=== PATIENT | female | born 2000 | race Caucasian/White ===

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

== ENCOUNTER 2018-06-29 10:36 | Emergency (ER) | payer BC ==
[2018-06-29] MEDS ORDERED: SODIUM CHLORIDE 0.9% 1,000 ML IV ONE ×2 (11:03)
--- NOTE | 2018-06-29 11:05 | ED ---
Female Urogenital HPI - General Chief complaint: Vaginal Bleeding Stated complaint: Vaginal Bleeding, Time Seen by Provider: 06/29/18 10:49 Source: patient, RN notes reviewed, old records reviewed Mode of arrival: ambulatory Limitations: no limitations - History of Present Illness Initial comments: Patient states [age]-year-old female, presents emergency murmurs chiefly menstrual bleeding. She is 9 weeks . Patient states that she has had no fevers or chills, she does report some lower abdominal pain and cramping. She does some cramping yesterday evening but went to bed. She woke up to go to the bathroom this morning she noticed bright red blood in the toilet when she wiped. She states the bleeding has subsided at this time. No history of hemorrhoids. Patient states that she has had no other symptoms at this time. Her PERSONAL INJURY PARALEGAL is Dr. Rowe. Her appointment is in 2 weeks. - Related Data Home Medications Medication Instructions Recorded Confirmed No Known Home Medications 06/29/18 06/29/18 Allergies Allergy/AdvReac Type Severity Reaction Status Date / Time sulfamethoxazole AdvReac Vomiting Verified 06/29/18 11:04 [From Bactrim] trimethoprim [From Bactrim] AdvReac Vomiting Verified 06/29/18 11:04 Review of Systems ROS Statement: Those systems with pertinent positive or pertinent negative responses have been documented in the HPI. ROS Other: All systems not noted in ROS Statement are negative. Past Medical History Additional Past Medical History / Comment(s): IBS History of Any Multi-Drug Resistant Organisms: None Reported Past Surgical History: No Surgical Hx Reported Past Psychological History: No Psychological Hx Reported Smoking Status: Former smoker Past Alcohol Use History: None Reported Past Drug Use History: None Reported General Exam - General Exam Comments Initial Comments: Patient is a 17-year-old female. Alert and oriented. No significant distress. Limitations: no limitations General appearance: alert, in no apparent distress Head exam: Present: atraumatic, normocephalic, normal inspection Eye exam: Present: normal appearance, PERRL, EOMI. Absent: scleral icterus, conjunctival injection, periorbital swelling ENT exam: Present: normal exam, mucous membranes moist Neck exam: Present: normal inspection. Absent: tenderness, meningismus, lymphadenopathy Respiratory exam: Present: normal lung sounds bilaterally. Absent: respiratory distress, wheezes, rales, rhonchi, stridor Cardiovascular Exam: Present: regular rate, normal rhythm, normal heart sounds. Absent: systolic murmur, diastolic murmur, rubs, gallop, clicks GI/Abdominal exam: Present: soft, tenderness (Suprapubic and left lower quadrant tenderness.), normal bowel sounds. Absent: distended, guarding, rebound, rigid External exam: Present: normal external exam Speculum exam: Present: vaginal bleeding (Patient has faint vaginal bleeding this time. No significant clots noted.). Absent: normal speculum exam, cervical discharge, foreign body, tissue, laceration By manual exam: Present: normal by manual exam Extremities exam: Present: normal inspection, full ROM, normal capillary refill. Absent: tenderness, pedal edema, joint swelling, calf tenderness Back exam: Present: normal inspection Neurological exam: Present: alert, oriented X3, CN II-XII intact Psychiatric exam: Present: normal affect, normal mood Skin exam: Present: warm, dry, intact, normal color. Absent: rash Course Vital Signs 06/29/18 10:49 Temperature 98.3 F Pulse Rate 77 Respiratory 18 Rate Blood Pressure 107/74 O2 Sat by Pulse 100 Oximetry Medical Decision Making - Medical Decision Making 17-year-old female 9 weeks presents emergency department today with vaginal bleeding today. She reports that she wiped this morning when she urinated. On pelvic exam there is noted blood. No significant clots. No tenderness at this time. Ultrasound was completed and shows a viable IUP. Heart rate was 1 74 bpm. She has no significant tenderness on exam. She is Rh - blood type, given RhoGAM. I discussed case with Dr. Miller who is on-call for her PERSONAL INJURY PARALEGAL, Dr. Rowe. Patient will be seen by Dr. Rowe on Sunday. Discussed at that time medically remain order further blood work or ultrasound. Patient received treatment plan will comply. REturn parameters were discussed. - Lab Data Lab Results 06/29/18 06/29/18 06/29/18 Range/Units 11:12 11:12 11:12 Urine Color Yellow Urine Appearance Turbid H (Clear) Urine pH 7.5 (5.0-8.0) Ur Specific [place] 1.015 (1.001-1.035) Urine Protein Trace H (Negative) Urine Glucose (UA) Negative (Negative) Urine Ketones Negative (Negative) Urine Blood Small H (Negative) Urine Nitrite Negative (Negative) Urine Bilirubin Negative (Negative) Urine Urobilinogen <2.0 (<2.0) mg/dL Ur Leukocyte Esterase Negative (Negative) Urine WBC 14 H (0-5) /hpf Ur Squamous Epith Cells 17 H (0-4) /hpf Urine Bacteria Many H (None) /hpf Urine Mucus Rare H (None) /hpf Urine HCG, Qual Detected (Not Detectd) Blood Type A Negative Blood Type Recheck [facility] ONLY - Radiology Data Radiology results: report reviewed Intrauterine gestation age of 9 weeks and 5 days. Heart rate was 1 74 bpm. Disposition Clinical Impression: Threatened miscarriage Disposition: HOME SELF-CARE Condition: Good Instructions: Threatened Miscarriage (ED) Additional Instructions: Patient has follow-up with primary care physician. Return to emergency department if any alarming signs or symptoms occur. Follow-up with Dr. Rowe on Sunday. Is patient prescribed a controlled substance at d/c from ED?: No Referrals: Navin Mccarthy MD [Primary Care Provider] - 1-2 days Deidra Rowe DO [Doctor of Osteopathic Medicine] - 1-2 days Time of Disposition: 12:24
[2018-06-29 11:24] LABS: Appearance,Urine Turbid (Clear); Bacteria,Urine Many /hpf; Bilirubin,Urine Negative (Negative); Blood,Urine Small (Negative); Color,Urine Yellow; Glucose,Urine (UA) Negative (Negative); Ketones,Urine Negative (Negative); Leukocyte Esterase,Urine Negative (Negative); Mucus,Urine Rare /hpf; Nitrite,Urine Negative (Negative); PH, Urine 7.5 (5.0-8.0); Protein,Urine Trace (Negative); Specific Gravity,Urine 1.015 (1.001-1.035); Squamous Epithelial Cell,Urine 17 /hpf (0-4); Urobilinogen,Urine <2.0 mg/dL (<2.0); WBC,Urine 14 /hpf (0-5)
--- NOTE | 2018-06-29 11:43 | US ---
EXAMINATION TYPE: Transabdominal DATE OF EXAM: 01/15/18 COMPARISON: NONE CLINICAL HISTORY: pain. Cramping and bleeding x 1 day, 1 EXAM PERFORMED: Transabdominal (TA) EXAM MEASUREMENTS: GESTATIONAL AGE / DATING Physician Established: Not established yet Dates by LMP: Unknown Dates by First Scan: This is 1st scan Dates by Current Scan for: ( 9 weeks/0 days) EDC: 02/01/2019 MATERNAL ANATOMY Uterus: 9.7 x 6.3 x 8.7cm, anteverted Right Ovary: 3.1 x 2.2 x 1.8cm Left Ovary: 2.9 x 2.5 x 1.9cm Post CDS / Adnexa: small amount of fluid seen in posterior cul de sac Presence of free fluid: yes Presence of corpus luteal cyst: not seen at this time Presence of subchorionic bleed: no GESTATION / SURVEY CRL: 2.2cm (9 weeks/0 days) Yolk Sac (normal less than 6mm): 3.8mm Heart Rate: 174 bpm Rhythm: Normal IUP: Viable IUP Date of LMP: Unknown Beta HcG (if available): Not available at time of exam Viable single IUP measuring 9 weeks 0 days with a heart rate of 174bpm and an estimated delivery date of 02/01/2019. IMPRESSION: BILATERAL UTERINE GESTATION WITH A GESTATIONAL AGE OF 9 WEEKS +/- 5 DAYS. ESTIMATED DATE OF CONFINEME NT BASED ON THIS EXAMINATION IS 02/01/2019.
[2018-06-29] MEDS ORDERED: Rhogam IMMUNE GLOBULIN 1,500 UNIT/1 ML IM ONE (12:09)
[2018-06-29 12:59] VITALS: BP 105/72; PULSE 70; RESP 16; TEMP 98.1
[2018-06-30 12:09] LABS: N. gonorrhoeae,PCR Negative (Neg,Equiv); Neisseria Source Vagina
[2018-06-30 12:10] LABS: C. trachomatis,PCR Negative (Neg,Equiv); Chlamydia trachomatis Source Vagina
== END 2018-06-29 12:59 | disposition home or self-care (01) ==
LOC: EC 10:36
DX: O20.0 Threatened abortion (principal); O99.89 Other specified diseases and conditions complicating pregnancy, childbirth and the puerperium; R82.71 Bacteriuria; O99.611 Diseases of the digestive system complicating pregnancy, first trimester; K58.9 Irritable bowel syndrome, unspecified; Z87.891 Personal history of nicotine dependence; Z88.2 Allergy status to sulfonamides; Z3A.09 9 weeks gestation of pregnancy; Z53.8 Procedure and treatment not carried out for other reasons
CPT/HCPCS: 36415; 86900; 86901; 86850; 81001; 81025; 84702; 87808; 87491; 87591; 87070; 87086; 87205; 76801; 99284; 96372; J2791

== ENCOUNTER 2018-07-17 13:58 | Emergency (ER) | payer BC ==
[2018-07-17] MEDS ORDERED: METOCLOPRAMIDE 5 MG/ML 2 ML VIAL IVP STA (14:18)
[2018-07-17] MEDS ORDERED: SODIUM CHLORIDE 0.9% 1,000 ML IV STA (14:18)
--- NOTE | 2018-07-17 14:20 | ED ---
General Adult HPI - General Chief complaint: Nausea/Vomiting/Diarrhea Stated complaint: vomiting & migraines/11 wks preg Time Seen by Provider: 07/17/18 14:12 Source: patient, RN notes reviewed Mode of arrival: ambulatory Limitations: no limitations - History of Present Illness Initial comments: The 17-year-old male who is G1, P0, 11 weeks , presented to the emergency room today with a chief complaint of increased nausea vomiting over the last 3 days. Patient does admit that she's had some morning sickness through the but over the last 3 days has been worse. She is having a difficult time keeping anything down. States she has had a headache located in the front of her head. She states she feels somewhat dehydrated. She states the headache is related to this. Patient that she called her OB and was advised compared to emergency room for IV fluids. Patient denies any vaginal bleeding or discharge. Denies any abdominal pain. Denies any other complaints or symptoms. Patient denies any recent fever, chills, shortness of breath, chest pain, back pain, numbness or tingling, dysuria or hematuria, constipation or diarrhea, headaches or visual changes, or any other complaints. - Related Data Home Medications Medication Instructions Recorded Confirmed Pnv,Calcium 72/Iron/Folic Acid 1 tab PO DAILY 07/17/18 07/17/18 [ Plus Tablet] Allergies Allergy/AdvReac Type Severity Reaction Status Date / Time sulfamethoxazole AdvReac Vomiting Verified 07/17/18 14:03 [From Bactrim] trimethoprim [From Bactrim] AdvReac Vomiting Verified 07/17/18 14:03 Review of Systems ROS Statement: Those systems with pertinent positive or pertinent negative responses have been documented in the HPI. ROS Other: All systems not noted in ROS Statement are negative. Past Medical History Past Medical History: No Reported History Additional Past Medical History / Comment(s): IBS History of Any Multi-Drug Resistant Organisms: None Reported Past Surgical History: No Surgical Hx Reported Past Psychological History: Anxiety Smoking Status: Current every day smoker Past Alcohol Use History: None Reported Past Drug Use History: None Reported General Exam - General Exam Comments Initial Comments: General: The patient is awake and alert, in no distress, and does not appear acutely ill. Eye: Extra-ocular movements are intact. No nystagmus. There is normal conjunctiva bilaterally. No signs of icterus. Ears, nose, mouth and throat: There are moist mucous membranes and no oral lesions. Neck: The neck is supple, there is no tenderness or JVD. Cardiovascular: There is a regular rate and rhythm. No murmur, rub or gallop is appreciated. Respiratory: Lungs are clear to auscultation, respirations are non-labored, breath sounds are equal. No wheezes, stridor, rales, or rhonchi. Gastrointestinal: Soft, non-distended, non-tender abdomen without masses or organomegaly noted. There is no rebound or guarding present. No CVA tenderness. Musculoskeletal: Normal ROM, no tenderness. Sensation intact. Neurological: A&O x 3. CN II-XII intact, There are no obvious motor or sensory deficits. Coordination appears grossly intact. Speech is normal. Skin: Skin is warm and dry and no rashes or lesions are noted. Psychiatric: Cooperative, appropriate mood & affect, normal judgment. Limitations: no limitations Course Vital Signs 07/17/18 07/17/18 14:00 15:30 Temperature 98.2 F 98.1 F Pulse Rate 86 82 Respiratory 18 20 Rate Blood Pressure 110/67 99/57 O2 Sat by Pulse 100 99 Oximetry Medical Decision Making - Medical Decision Making Reexamined at this time shows no signs of stress she sitting up comfortably. She is given a liter bolus along with Reglan here in emergency rooms feeling much better. Patient denies any headache states is completely gone. Patient states she is ready to be discharged home. Will be discharged and advised follow-up with her OB over the next 2 days. Advised return if symptoms increase worsen or for any other concerns. - Lab Data Result diagrams: 07/17/18 14:35 07/17/18 14:35 Lab Results 07/17/18 07/17/18 07/17/18 Range/Units 14:35 14:35 14:35 WBC 12.2 H (4.0-11.0) k/uL RBC 3.99 (3.80-5.40) m/uL Hgb 12.7 (11.4-16.0) gm/dL Hct 37.6 (34.0-46.0) % MCV 94.3 (80.0-100.0) fL MCH 31.7 (25.0-35.0) pg MCHC 33.7 (31.0-37.0) g/dL RDW 12.0 (11.5-15.5) % Plt Count 252 (150-450) k/uL Neutrophils % 75 % Lymphocytes % 20 % Monocytes % 4 % Eosinophils % 1 % Basophils % 0 % Neutrophils # 9.1 H (1.3-7.7) k/uL Lymphocytes # 2.4 (1.0-4.8) k/uL Monocytes # 0.5 (0-1.0) k/uL Eosinophils # 0.1 (0-0.7) k/uL Basophils # 0.0 (0-0.2) k/uL Sodium 138 (137-145) mmol/L Potassium 3.9 (3.5-5.1) mmol/L Chloride 105 (98-107) mmol/L Carbon Dioxide 24 (22-30) mmol/L Anion Gap 9 mmol/L BUN 8 (7-17) mg/dL Creatinine 0.47 L (0.52-1.04) mg/dL Est GFR (CKD-EPI)AfAm >90 (>60 ml/min/1.73 sqM) Est GFR (CKD-EPI)NonAf >90 (>60 ml/min/1.73 sqM) Glucose 85 (74-99) mg/dL Calcium 9.9 (8.4-10.2) mg/dL Total Bilirubin 0.2 (0.2-1.3) mg/dL AST 23 (14-36) U/L ALT 22 (9-52) U/L Alkaline Phosphatase 42 (38-126) U/L Total Protein 6.7 (6.3-8.2) g/dL Albumin 3.9 (3.5-5.0) g/dL Amylase 44 (30-110) U/L Lipase 43 (23-300) U/L Urine Color Yellow Urine Appearance Turbid H (Clear) Urine pH 7.5 (5.0-8.0) Ur Specific [place] 1.015 (1.001-1.035) Urine Protein Negative (Negative) Urine Glucose (UA) Negative (Negative) Urine Ketones Negative (Negative) Urine Blood Negative (Negative) Urine Nitrite Negative (Negative) Urine Bilirubin Negative (Negative) Urine Urobilinogen <2.0 (<2.0) mg/dL Ur Leukocyte Esterase Negative (Negative) Urine WBC 5 (0-5) /hpf Urine Bacteria Moderate H (None) /hpf Urine Yeast (Budding) Many H (None) /hpf Disposition Clinical Impression: Hyperemesis gravidarum Disposition: HOME SELF-CARE Condition: Good Instructions: Hyperemesis Gravidarum (ED) Additional Instructions: Please use medication as discussed. Please follow-up with [employer]POR[employer]ORNEY/family doctor in the next 2 days of symptoms have not improved. Please return to emergency room if the symptoms increase or worsen or for any other concerns. Is patient prescribed a controlled substance at d/c from ED?: No Referrals: Navin Mccarthy MD [Primary Care Provider] - 1-2 days Deidra Rowe DO [Doctor of Osteopathic Medicine] - 1-2 days Time of Disposition: 15:36
[2018-07-17 15:04] LABS: Basophils % (A) 0 %; Eosinophils # (A) 0.1 k/uL (0-0.7); Eosinophils % (A) 1 %; HCT 37.6 % (34.0-46.0); HGB 12.7 gm/dL (11.4-16.0); Lymphocytes # (A) 2.4 k/uL (1.0-4.8); Lymphocytes % (A) 20 %; MCH 31.7 pg (25.0-35.0); MCHC 33.7 g/dL (31.0-37.0); MCV 94.3 fL (80.0-100.0); Mean Platelet Volume 7.2; Monocytes # (A) 0.5 k/uL (0-1.0); Monocytes % (A) 4 %; Neutrophils # (A) 9.1 k/uL (1.3-7.7); Neutrophils % (A) 75 %; Platelet Count 252 k/uL (150-450); RBC 3.99 m/uL (3.80-5.40); WBC 12.2 k/uL (4.0-11.0)
[2018-07-17 15:05] LABS: ALT 22 U/L (9-52); AST 23 U/L (14-36); Albumin 3.9 g/dL (3.5-5.0); Alkaline Phosphatase 42 U/L (38-126); Amylase 44 U/L (30-110); Anion Gap 9 mmol/L; Blood Urea Nitrogen 8 mg/dL (7-17); Calcium 9.9 mg/dL (8.4-10.2); Carbon Dioxide 24 mmol/L (22-30); Chloride 105 mmol/L (98-107); Glucose 85 mg/dL (74-99); Lipase 43 U/L (23-300); Potassium 3.9 mmol/L (3.5-5.1); Sodium 138 mmol/L (137-145); Total Bilirubin 0.2 mg/dL (0.2-1.3); Total Protein 6.7 g/dL (6.3-8.2)
[2018-07-17 15:09] LABS: Appearance,Urine Turbid (Clear); Bacteria,Urine Moderate /hpf; Bilirubin,Urine Negative (Negative); Blood,Urine Negative (Negative); Budding Yeast,Urine Many /hpf; Color,Urine Yellow; Glucose,Urine (UA) Negative (Negative); Ketones,Urine Negative (Negative); Leukocyte Esterase,Urine Negative (Negative); Nitrite,Urine Negative (Negative); PH, Urine 7.5 (5.0-8.0); Protein,Urine Negative (Negative); Specific Gravity,Urine 1.015 (1.001-1.035); Urobilinogen,Urine <2.0 mg/dL (<2.0)
[2018-07-17 15:33] VITALS: BP 99/57; PULSE 82; RESP 20; TEMP 98.1
== END 2018-07-17 15:44 | disposition home or self-care (01) ==
LOC: EC 13:58
DX: O21.0 Mild hyperemesis gravidarum (principal); O99.89 Other specified diseases and conditions complicating pregnancy, childbirth and the puerperium; R51 Headache; O99.331 Smoking (tobacco) complicating pregnancy, first trimester; F17.200 Nicotine dependence, unspecified, uncomplicated; Z88.2 Allergy status to sulfonamides; Z3A.11 11 weeks gestation of pregnancy
CPT/HCPCS: 36415; 80053; 82150; 83690; 85025; 81001; 99284; 96374; 96361; J2765

== ENCOUNTER 2018-12-29 16:05 | Outpatient (CLI) | payer OTHER ==
[2018-12-29 16:34] LABS: Appearance,Urine Cloudy (Clear); Bacteria,Urine Rare /hpf; Bilirubin,Urine Negative (Negative); Blood,Urine Negative (Negative); Color,Urine Yellow; Glucose,Urine (UA) Negative (Negative); Ketones,Urine 1+ (Negative); Leukocyte Esterase,Urine Moderate (Negative); Mucus,Urine Rare /hpf; Nitrite,Urine Negative (Negative); PH, Urine 6.5 (5.0-8.0); Protein,Urine Negative (Negative); RBC,Urine 1 /hpf (0-5); Specific Gravity,Urine 1.008 (1.001-1.035); Squamous Epithelial Cell,Urine 6 /hpf (0-4); Urobilinogen,Urine <2.0 mg/dL (<2.0); WBC,Urine 4 /hpf (0-5)
[2018-12-29 16:50] VITALS: BP 137/76; PULSE 122; RESP 15; TEMP 97.4
--- NOTE | 2018-12-30 07:13 | P.MSEPDOC ---
Presenting Problems - Arrival Data Date of Arrival on Unit: 12/29/18 Time of Arrival on Unit: 16:05 Mode of Transport: Wheelchair - Complaint Comment: contx Medical History - Information : 1 Para: 0 Term: 0 : 0 Abortions: Spontaneous or Elective: 0 Number of Living Children: 0 - Gestational Age Gestational Age by DAVID (wks/days): 35 Weeks and 1 Days Review of Systems - Review of Systems Constitutional: No problems Breast: No problems ENT: No problems Cardiovascular: No problems Respiratory: No problems Gastrointestinal: No problems Genitourinary: No problems Musculoskeletal: No problems Neurological: No problems Skin: No problems Vital Signs - Temperature Temperature: 97.4 F Temperature Source: Temporal Artery Scan - Pulse Pulse Oximetery Pulse Rate: 122 Pulse Assessment Method: Pulse Oximetry - Respirations Respiratory Rate: 15 Oxygen Delivery Method: Room Air - Blood Pressure Right Arm Sitting Blood Pressure: 137/76 Blood Pressure Mean: 96 Blood Pressure Source: Automatic Cuff Medical Screen Scoring (Pre) - Cervical Exam Dilation: 0 cm = 0 Membranes: Intact - Uterine Contractions Frequency: > 5 minutes apart = 1 Duration: N/A Intensity: N/A - Maternal Vital Signs Maternal Temperature: N/A Maternal Blood Pressure: N/A Signs of Preeclampsia: N/A, Headache = 1 Maternal Respirations: N/A - Assessment Baseline FHR: 135 Heart Rate - NICHD Category: Category I (Normal) = 0 NST: Reactive Position: N/A Station: N/A - Total Score Total Score (Pre): 2 - Level of Risk Level of Risk: Low (0-5) Physician Notification (Pre) - Physician Notified Physician Notified Date: 12/29/18 Physician Notified Time: 16:44 Spoke With: Dr Paul New Order Received: Yes - Notification Comment Comment: pt having irregular contx, cervix is closed. u/a shows no signs of uti. pt mat go home after 1hr of monitoring per v.oOfe Paul. Disposition - Disposition Discharge Date: 12/29/18 Discharge Time: 17:32 I agree with the RN Medical Screening Exam: Yes Risk & Benefit of care provided described in d/c instruction: Yes Diagnosis: FALSE LABOR BEFORE 37 COMPLETED WEEKS OF GEST, THIRD TRI
== END 2018-12-29 17:32 | disposition home or self-care (01) ==
LOC: FBPOP 16:05
PROVIDERS: ATTEND Obstetrics & Gynecology
DX: O47.03 False labor before 37 completed weeks of gestation, third trimester (principal); Z3A.35 35 weeks gestation of pregnancy
CPT/HCPCS: 59025; 81001; G0463; 99213

== ENCOUNTER 2019-01-17 21:17 | Emergency (ER) | payer BC, OTHER ==
[2019-01-17 22:30] VITALS: TEMP 98.1
--- NOTE | 2019-01-17 22:51 | ED ---
Lower Extremity Injury HPI - General Chief Complaint: Extremity Injury, Lower Stated Complaint: Foot injury 38 weeks Time Seen by Provider: 01/17/19 22:37 Source: patient, RN notes reviewed, old records reviewed Mode of arrival: ambulatory Limitations: no limitations - History of Present Illness Initial Comments: This is a 18-year-old female the ER for evaluation. Patient presents today for evaluation regarding fall. MECHANICAL IN NATURE WITH RIGHT KNEE PAIN RIGHT ANKLE PAIN. DENIES ANY OTHER TRAUMATIC INJURY NO ABDOMINAL PAIN OR CRAMPING, NO VAGINAL BLEEDING. NO LOSS OF FLUID. MD Complaint: knee injury, ankle injury -: minutes(s) Injury: Knee: Right, Ankle: Right, Foot: Right Type of Injury: blunt Place: home Severity: moderate Severity scale (1-10): 4 Improves With: nothing Worsens With: nothing Context: fall, direct blow, running Associated Symptoms: swelling - Related Data Home Medications Medication Instructions Recorded Confirmed Pnv,Calcium 72/Iron/Folic Acid 1 tab PO DAILY 07/17/18 01/17/19 [ Plus Tablet] Allergies Allergy/AdvReac Type Severity Reaction Status Date / Time sulfamethoxazole AdvReac Vomiting Verified 01/17/19 22:44 [From Bactrim] trimethoprim [From Bactrim] AdvReac Vomiting Verified 01/17/19 22:44 Review of Systems ROS Statement: Those systems with pertinent positive or pertinent negative responses have been documented in the HPI. ROS Other: All systems not noted in ROS Statement are negative. Past Medical History Past Medical History: No Reported History Additional Past Medical History / Comment(s): IBS History of Any Multi-Drug Resistant Organisms: None Reported Past Surgical History: No Surgical Hx Reported Past Psychological History: Anxiety Smoking Status: Current every day smoker General Exam - General Exam Comments Initial Comments: Contusion and swelling of right lower extremity, knee and foot Limitations: no limitations General appearance: alert, in no apparent distress Head exam: Present: atraumatic, normocephalic, normal inspection Eye exam: Present: normal appearance, PERRL, EOMI. Absent: scleral icterus, conjunctival injection, periorbital swelling ENT exam: Present: normal exam, mucous membranes moist Neck exam: Present: normal inspection. Absent: tenderness, meningismus, lymphadenopathy Respiratory exam: Present: normal lung sounds bilaterally. Absent: respiratory distress, wheezes, rales, rhonchi, stridor Cardiovascular Exam: Present: regular rate, normal rhythm, normal heart sounds. Absent: systolic murmur, diastolic murmur, rubs, gallop, clicks GI/Abdominal exam: Present: soft, normal bowel sounds. Absent: distended, tenderness, guarding, rebound, rigid Extremities exam: Present: normal inspection, full ROM, normal capillary refill. Absent: tenderness, pedal edema, joint swelling, calf tenderness Back exam: Present: normal inspection Neurological exam: Present: alert, oriented X3, CN II-XII intact Psychiatric exam: Present: normal affect, normal mood Skin exam: Present: warm, dry, intact, normal color. Absent: rash Course Vital Signs 01/17/19 22:26 Temperature 98.1 F Pulse Rate 94 Respiratory 20 Rate Blood Pressure 112/74 O2 Sat by Pulse 99 Oximetry - Reevaluation(s) Reevaluation #1: 01/17/19 23:29 Medical record reviewed Reevaluation #2: 01/17/19 23:29 Heart tones are 115 Medical Decision Making - Medical Decision Making 18 female the ER for evaluation of fall. Fall with ankle pain. Patient will be discharged from ER with 5th metatarsal fracture, follow L&D for monitoring of baby secondary to 38 week - Radiology Data Radiology results: report reviewed (XR foot, right 5th metatsal fracture), image reviewed Disposition Clinical Impression: Contusion of right knee, Right ankle pain, Fall, Closed nondisplaced fracture of fifth right metatarsal bone Disposition: HOME SELF-CARE Condition: Good Instructions (If sedation given, give patient instructions): Ankle Sprain (ED), Knee Pain (ED) Is patient prescribed a controlled substance at d/c from ED?: No Referrals: Edu Rendon DO [Doctor of Osteopathic Medicine] - 1-2 days
[2019-01-17] MEDS ORDERED: ACETAMINOPHEN TAB 500 MG TAB PO STA (22:57)
--- NOTE | 2019-01-17 23:53 | XR ---
EXAM: XR Right Foot Complete, 3 or More Views CLINICAL HISTORY: ITS.REASON XR Reason: Pain TECHNIQUE: Frontal, lateral and oblique views of the right foot. COMPARISON: No relevant prior studies available. FINDINGS: Bones/joints: Fracture of the right fifth proximal phalanx. Slight lateral angulation. No involvement of the articular surface. No dislocation.. Soft tissues: Unremarkable. No radiopaque foreign body. IMPRESSION: Right fifth proximal phalanx fracture.
--- NOTE | 2019-01-17 23:54 | XR ---
EXAM: XR Right Ankle, 2 Views CLINICAL HISTORY: ITS.REASON XR Reason: Pain TECHNIQUE: Frontal and lateral views of the right ankle. COMPARISON: No relevant prior studies available. FINDINGS: Bones/joints: Unremarkable. No acute fracture. No dislocation. Soft tissues: Unremarkable. IMPRESSION: Normal right ankle x-rays.
[2019-01-18 00:43] VITALS: BP 117/68; PULSE 88; RESP 16
== END 2019-01-18 00:45 | disposition home or self-care (01) ==
LOC: EC 21:17
DX: O9A.213 Injury, poisoning and certain other consequences of external causes complicating pregnancy, third trimester (principal); S92.354A Nondisplaced fracture of fifth metatarsal bone, right foot, initial encounter for closed fracture; S80.01XA Contusion of right knee, initial encounter; O99.333 Smoking (tobacco) complicating pregnancy, third trimester; F17.200 Nicotine dependence, unspecified, uncomplicated; Z88.2 Allergy status to sulfonamides; Z3A.38 38 weeks gestation of pregnancy; W01.0XXA Fall on same level from slipping, tripping and stumbling without subsequent striking against object, initial encounter; Y93.02 Activity, running; Y92.009 Unspecified place in unspecified non-institutional (private) residence as the place of occurrence of the external cause
CPT/HCPCS: 99284

== ENCOUNTER 2019-01-18 00:55 | Outpatient (CLI) | payer BC, OTHER ==
[2019-01-18 02:00] VITALS: BP 127/72; PULSE 81; RESP 16; TEMP 97.2
--- NOTE | 2019-01-18 23:40 | P.MSEPDOC ---
Presenting Problems - Arrival Data Date of Arrival on Unit: 01/18/19 Time of Arrival on Unit: 00:55 Mode of Transport: Wheelchair - Complaint OB-Reason for Admission/Chief Complaint: NST Comment: pt was in ER for fall on her hands and knees, did not hit her belly. no OB complaints. Medical History - Information : 1 Para: 0 Term: 0 : 0 Abortions: Spontaneous or Elective: 0 Number of Living Children: 0 - Gestational Age Gestational Age by DAVID (wks/days): 38 Weeks and 0 Days - History Complications: Smoker Review of Systems - Review of Systems Constitutional: No problems Breast: No problems ENT: No problems Cardiovascular: No problems Respiratory: No problems Gastrointestinal: No problems Genitourinary: No problems Musculoskeletal: No problems Neurological: No problems Skin: No problems Vital Signs - Temperature Temperature: 97.2 F Temperature Source: Temporal Artery Scan - Pulse Right Pulse Rate: 81 Pulse Assessment Method: Pulse Oximetry - Respirations Respiratory Rate: 16 O2 Sat by Pulse Oximetry: 99 - Blood Pressure Right Arm Blood Pressure: 127/72 Blood Pressure Mean: 90 Blood Pressure Source: Automatic Cuff Medical Screen Scoring (Pre) - Cervical Exam Dilation: Exam Deferred Effacement: Exam Deferred - Uterine Contractions Frequency: > or = 36 weeks =2 Duration: > 40 seconds = 2 Intensity: N/A - Maternal Vital Signs Maternal Temperature: N/A Maternal Blood Pressure: N/A Maternal Respirations: N/A - Assessment Baseline FHR: 110 Heart Rate - NICHD Category: Category I (Normal) = 0 NST: Reactive - Total Score Total Score (Pre): 4 - Level of Risk Level of Risk: Low (0-5) Physician Notification (Pre) - Physician Notified Physician Notified Date: 01/18/19 Physician Notified Time: 01:37 Physician/Practitioner Notifed:: Dr Rowe - Notification Comment Comment: Dr Rowe called at home. Reported that pt fell on her hands and knees at 2044,. has been in the ER, has a broken foot. Reported on fhts, low baseline, +fm per pt and. audibly and palpable. Reported on occasional cntrx, pt not c/o pain, states she. contracts all day. pt has scheduled appt on . Reported on no OB complaints or. hx. Orders to d/c home with instructions, keep scheduled appt, return with needs Disposition - Disposition OB Disposition: Discharge to home Discharge Date: 01/18/19 Discharge Time: 01:45 I agree with the RN Medical Screening Exam: Yes Risk & Benefit of care provided described in d/c instruction: Yes Diagnosis: ENCNTR FOR SUPRVSN OF NORMAL FIRST PREG, THIRD TRIMESTER
== END 2019-01-18 01:45 | disposition home or self-care (01) ==
LOC: FBPOP 00:55
PROVIDERS: ATTEND Obstetrics & Gynecology
DX: Z34.03 Encounter for supervision of normal first pregnancy, third trimester (principal); O99.333 Smoking (tobacco) complicating pregnancy, third trimester; Z3A.38 38 weeks gestation of pregnancy
CPT/HCPCS: 59025; 99213

== ENCOUNTER 2019-01-27 05:55 | Inpatient (IN) | payer BC, OTHER ==
[2019-01-27] MEDS ORDERED: LIDOCAINE 0.5% (PF) 5 MG/ML (50 ML SDV) SQ PRN (06:06)
[2019-01-27] MEDS ORDERED: OXYTOCIN 10 UNIT/ML 1 ML VIAL IM PRN (06:06)
[2019-01-27] MEDS ORDERED: METHYLERGONOVINE 0.2 MG/ML 1 ML AMP IM PRN (06:06)
[2019-01-27] MEDS ORDERED: CARBOPROST TROMETHAMINE 250 MCG/ML 1 ML AMP IM PRN (06:06)
[2019-01-27] MEDS ORDERED: TERBUTALINE 1 MG/ML VIAL SQ PRN (06:06)
[2019-01-27] MEDS ORDERED: OXYTOCIN 30 UNITS/500 ML NS 30 UNIT in SALINE 1 500ML.BAG IV SCH (06:15)
[2019-01-27 06:25] VITALS: BMI 28.3
[2019-01-27 06:27] LABS: Basophils % (A) 0 %; Eosinophils # (A) 0.2 k/uL (0-0.7); Eosinophils % (A) 1 %; HGB 11.3 gm/dL (11.4-16.0); Lymphocytes # (A) 2.7 k/uL (1.0-4.8); Lymphocytes % (A) 13 %; MCH 30.9 pg (25.0-35.0); MCHC 33.1 g/dL (31.0-37.0); MCV 93.2 fL (80.0-100.0); Mean Platelet Volume 7.8; Monocytes # (A) 0.9 k/uL (0-1.0); Monocytes % (A) 5 %; Neutrophils # (A) 16.4 k/uL (1.3-7.7); Neutrophils % (A) 80 %; Platelet Count 313 k/uL (150-450); RBC 3.65 m/uL (3.80-5.40); RDW 13.1 % (11.5-15.5); WBC 20.6 k/uL (4.0-11.0)
[2019-01-27] MEDS: LACTATED RINGERS 1,000 ML IV SCH ×2 (06:33→14:13)
[2019-01-27] MEDS ORDERED: BUTORPHANOL 1 MG/ML 1 ML VIAL IV PRN (08:25)
[2019-01-27] MEDS ORDERED: Rhogam IMMUNE GLOBULIN 1,500 UNIT/1 ML IM ONE (17:54)
[2019-01-27] MEDS ORDERED: diphenhydrAMINE 25 MG CAP PO PRN (17:54)
[2019-01-27] MEDS ORDERED: LANOLIN CREAM 5 GM TUBE TOPICAL PRN (17:54)
[2019-01-27] MEDS ORDERED: SIMETHICONE 80 MG CHEWABLE PO PRN (17:54)
[2019-01-27] MEDS ORDERED: ZOLPIDEM 5 MG TAB PO PRN (17:54)
[2019-01-27] MEDS ORDERED: diphenhydrAMINE 50 MG CAP PO PRN (17:54)
[2019-01-27] MEDS ORDERED: BENZOCAINE/MENTHOL SPRAY 1 GM/SPRAY AEROSOL TOPICAL PRN (17:54)
[2019-01-27] MEDS ORDERED: HYDROCORTISONE 2.5% RECTAL CREAM 30 GM TUBE RECTAL PRN (17:54)
[2019-01-27] MEDS ORDERED: WITCH HAZEL 1 EACH MED..PAD TOPICAL PRN (17:54)
[2019-01-27] MEDS ORDERED: IBUPROFEN 600 MG TAB PO PRN (17:54)
[2019-01-27] MEDS ORDERED: ACETAMINOPHEN TAB 325 MG TAB PO PRN (17:54)
[2019-01-27] MEDS ORDERED: diphenhydrAMINE 50 MG/ML 1 ML VIAL IVP PRN ×2 (17:54)
--- NOTE | 2019-01-27 17:58 | P.HPOB ---
History of Present Illness H&P Date: 01/27/19 Chief Complaint: Induction of labor 18-year-old presents at 39 weeks and 2 days for induction of labor. Her cervix was 3 cm dilated, 80% effaced, and -2 station. She is vipin irregularly. heart tones 130 with moderate variability and reactive. Review of Systems All systems: negative Constitutional: Denies chills, Denies fever Eyes: denies blurred vision, denies pain Ears, nose, mouth and throat: Denies headache, Denies sore throat Cardiovascular: Denies chest pain, Denies shortness of breath Respiratory: Denies cough Gastrointestinal: Denies abdominal pain, Denies diarrhea, Denies nausea, Denies vomiting Genitourinary: Denies dysuria, Denies hematuria Musculoskeletal: Denies myalgias Integumentary: Denies pruritus, Denies rash Neurological: Denies numbness, Denies weakness Psychiatric: Denies anxiety, Denies depression Endocrine: Denies fatigue, Denies weight change Past Medical History Past Medical History: No Reported History Additional Past Medical History / Comment(s): IBS. Obstetric history: This is her first . She's had care with me since the first trimester. Blood type is A-, rubella immune, hepatitis B negative, GBS negative, HIV nonreactive, RPR nonreactive. Normal 1 hour glucose tolerance test. GBS negative. History of Any Multi-Drug Resistant Organisms: None Reported Past Surgical History: No Surgical Hx Reported Past Anesthesia/Blood Transfusion Reactions: No Reported Reaction Past Psychological History: Anxiety Smoking Status: Current every day smoker Past Alcohol Use History: None Reported Additional Past Alcohol Use History / Comment(s): 5-6 cig. a day Past Drug Use History: None Reported - Past Family History Mother Family Medical History: Hyperlipidemia, Hypertension, Thyroid Disorder Additional Family Medical History / Comment(s): IBS, degenerative disc disease, divertic, skin cancer Medications and Allergies Home Medications Medication Instructions Recorded Confirmed Type Pnv,Calcium 72/Iron/Folic Acid 1 tab PO DAILY 07/17/18 01/27/19 History [ Plus Tablet] Allergies Allergy/AdvReac Type Severity Reaction Status Date / Time sulfamethoxazole AdvReac Vomiting Verified 01/27/19 06:04 [From Bactrim] trimethoprim [From Bactrim] AdvReac Vomiting Verified 01/27/19 06:04 Exam Osteopathic Statement: *. No significant issues noted on an osteopathic structural exam other than those noted in the History and Physical/Consult. Vital Signs Temp Pulse Resp BP Pulse Ox 01/27/19 06:04 96.5 F L 102 H 16 134/76 98 Intake and Output 01/27/19 01/27/19 01/27/19 06:59 14:59 22:59 Output Total 1 Balance -1 Output: Stool 1 Other: Weight 87.044 kg Heart: Regular rate and rhythm Lungs: Clear to auscultation bilaterally Abdomen: Soft, nontender Extremities: Negative Homans sign Results Result Diagrams: 01/27/19 06:15 Abnormal Lab Results - Last 24 Hours (Table) 01/27/19 Range/Units 06:15 WBC 20.6 H (4.0-11.0) k/uL RBC 3.65 L (3.80-5.40) m/uL Hgb 11.3 L (11.4-16.0) gm/dL Neutrophils # 16.4 H (1.3-7.7) k/uL Assessment and Plan (1) Normal labor Current Visit: Yes Status: Acute Code(s): O80 - ENCOUNTER FOR FULL-TERM UNCOMPLICATED DELIVERY; Z37.9 - OUTCOME OF DELIVERY, UNSPECIFIED SNOMED Code(s): 40794745 Plan: 1. Induction of labor with amniotomy and Pitocin 2. Anticipate normal vaginal delivery
--- NOTE | 2019-01-27 17:59 | P.PROBDLV ---
Vaginal Delivery Note - . Vaginal Delivery Note: 18-year-old presents at 39 weeks and 2 days for induction of labor. Her cervix was 3 cm dilated, 80% effaced, and -2 station. She is vipin irregularly. heart tones 130 with moderate variability and reactive. Pitocin was started. Amniotomy was performed at 7:53 AM, clear fluid noted. She progressed slowly throughout the day and her cervix was completely dilated at 1701. She pushed, and delivered a viable female infant over intact perineum at 1735. Head delivered OA, nuchal cord 1 easily reduced, anterior shoulder delivered with gentle downward guidance followed by posterior shoulder and rest of body. Nose and mouth bulb suctioned, cord clamped and cut, placed mother's abdomen. Apgars 9, 9, weight 8 lbs. 5 oz. Placenta delivered spontaneously, intact with three-vessel cord at 1738. Vagina, cervix, and perineum were inspected. Left labial laceration was repaired with 3-0 Vicryl. Estimated blood loss 300 mL. Mother and baby in stable condition.
[2019-01-27] MEDS: OXYTOCIN 20 UNITS/1000 ML NS 1,000 ML IV SCH ×2 (18:13→18:46)
[2019-01-27 21:07] LABS: Basophils # (A) 0.1 k/uL (0-0.2); Basophils % (A) 0 %; Eosinophils # (A) 0.2 k/uL (0-0.7); Eosinophils % (A) 1 %; HCT 31.6 % (34.0-46.0); HGB 10.4 gm/dL (11.4-16.0); Lymphocytes # (A) 1.5 k/uL (1.0-4.8); Lymphocytes % (A) 5 %; MCH 31.2 pg (25.0-35.0); MCHC 32.9 g/dL (31.0-37.0); MCV 94.7 fL (80.0-100.0); Mean Platelet Volume 8.2; Monocytes # (A) 1.1 k/uL (0-1.0); Monocytes % (A) 4 %; Neutrophils # (A) 25.9 k/uL (1.3-7.7); Neutrophils % (A) 89 %; Platelet Count 279 k/uL (150-450); RBC 3.34 m/uL (3.80-5.40); RDW 13.8 % (11.5-15.5)
[2019-01-27 21:11] LABS: WBC 28.9 k/uL (4.0-11.0)
[2019-01-27] MEDS: SENNOSIDES-DOCUSATE SODIUM 1 EACH TAB PO SCH (21:54)
[2019-01-28 05:19] VITALS: RESP 16
[2019-01-28] MEDS: SENNOSIDES-DOCUSATE SODIUM 1 EACH TAB PO SCH (07:34)
--- NOTE | 2019-01-28 08:56 | P.DS ---
Providers Date of admission: 01/27/19 05:55 Expected date of discharge: 01/28/19 Attending physician: Deidra Rowe Primary care physician: Deidra Rowe - Discharge Diagnosis(es) (1) Normal labor Current Visit: Yes Status: Resolved (2) Normal vaginal delivery Current Visit: Yes Status: Acute Hospital Course: Pt presented for induction of labor. She underwent a normal vaginal delivery. Her pp course was complicated with some heavy bleeding. She was given methergine and pitocin and the hemoglobin only dropped 1 point. She is not dizzy with standing, no headache or shortness of breath. She will be discharged home PPD #1 in stable condition to follow up with me in 6 weeks. Plan - Discharge Summary New Discharge Prescriptions: New Ibuprofen [Motrin] 600 mg PO Q6HR PRN #30 tab PRN Reason: Mild Pain Or Fever >= 100.5 No Action Pnv,Calcium 72/Iron/Folic Acid [ Plus Tablet] 1 tab PO DAILY Discharge Medication List Pnv,Calcium 72/Iron/Folic Acid [ Plus Tablet] 1 tab PO DAILY 07/17/18 [History] Ibuprofen [Motrin] 600 mg PO Q6HR PRN #30 tab 01/28/19 [Rx] Follow up Appointment(s)/Referral(s): Deidra Rowe DO [Primary Care Provider] - 6 Weeks Discharge Disposition: HOME SELF-CARE
[2019-01-28 16:29] VITALS: BP 115/58; PULSE 97; TEMP 98.3
== END 2019-01-28 18:30 | disposition home or self-care (01) | DRG 807 ==
LOC: 4FBP 05:55
PROVIDERS: ADMIT Obstetrics & Gynecology; ATTEND Obstetrics & Gynecology
PROC: 10E0XZZ Delivery of Products of Conception, External Approach (ICD-10-PCS; principal; 2019-01-27)
PROC: 0HQ9XZZ Repair Perineum Skin, External Approach (ICD-10-PCS; 2019-01-27)
PROC: 10907ZC Drainage of Amniotic Fluid, Therapeutic from Products of Conception, Via Natural or Artificial Opening (ICD-10-PCS; 2019-01-27)
PROC: 3E033VJ Introduction of Other Hormone into Peripheral Vein, Percutaneous Approach (ICD-10-PCS; 2019-01-27)
DX: O69.81X0 Labor and delivery complicated by cord around neck, without compression, not applicable or unspecified (principal); Z37.0 Single live birth; O99.344 Other mental disorders complicating childbirth; O70.0 First degree perineal laceration during delivery; O99.334 Smoking (tobacco) complicating childbirth; F17.210 Nicotine dependence, cigarettes, uncomplicated; F41.9 Anxiety disorder, unspecified; O99.62 Diseases of the digestive system complicating childbirth; K58.9 Irritable bowel syndrome, unspecified; Z3A.39 39 weeks gestation of pregnancy; Z88.1 Allergy status to other antibiotic agents; Z88.2 Allergy status to sulfonamides; Z80.8 Family history of malignant neoplasm of other organs or systems; Z82.49 Family history of ischemic heart disease and other diseases of the circulatory system; Z83.49 Family history of other endocrine, nutritional and metabolic diseases; Z83.79 Family history of other diseases of the digestive system
CPT/HCPCS: 85025; 85461

== ENCOUNTER 2019-08-26 19:46 | Emergency (ER) | payer BC ==
[2019-08-26 20:02] VITALS: BP 116/72; PULSE 78; RESP 16; TEMP 97.9
--- NOTE | 2019-08-26 20:07 | ED ---
Wound/Laceration HPI - General Chief Complaint: Wound/Laceration Stated Complaint: staph infection Time Seen by Provider: 08/26/19 20:01 Source: patient Mode of arrival: ambulatory Limitations: no limitations - History of Present Illness Initial Comments: 18-year-old female presented for chief complaint of possible staph infection. Patient states she has small bumps on her leg just distal to the area where she had an abrasion was concerned she was developing infection. Denies any history of MRSA. Patient denies any purulent drainage. Patient denies any fever or flulike symptoms. Patient denies any diffuse redness. Remaining review of systems negative upon arrival patient appears well afebrile no signs of acute distress. - Related Data Home Medications Medication Instructions Recorded Confirmed Pnv,Calcium 72/Iron/Folic Acid 1 tab PO DAILY 07/17/18 01/27/19 [ Plus Tablet] Previous Rx's Medication Instructions Recorded Ibuprofen [Motrin] 600 mg PO Q6HR PRN #30 tab 01/28/19 Cephalexin [Keflex] 500 mg PO Q8HR 5 Days #15 cap 08/26/19 Fluconazole [Diflucan] 150 mg PO ONCE PRN 1 Days #1 tab 08/26/19 Allergies Allergy/AdvReac Type Severity Reaction Status Date / Time sulfamethoxazole AdvReac Vomiting Verified 08/26/19 20:02 [From Bactrim] trimethoprim [From Bactrim] AdvReac Vomiting Verified 08/26/19 20:02 Review of Systems ROS Statement: Those systems with pertinent positive or pertinent negative responses have been documented in the HPI. ROS Other: All systems not noted in ROS Statement are negative. Past Medical History Past Medical History: No Reported History Additional Past Medical History / Comment(s): IBS History of Any Multi-Drug Resistant Organisms: None Reported Past Surgical History: No Surgical Hx Reported Past Anesthesia/Blood Transfusion Reactions: No Reported Reaction Past Psychological History: Anxiety Smoking Status: Current every day smoker Past Alcohol Use History: None Reported Past Drug Use History: Marijuana - Past Family History Mother Family Medical History: Hyperlipidemia, Hypertension, Thyroid Disorder Additional Family Medical History / Comment(s): IBS, degenerative disc disease, divertic, skin cancer General Exam - General Exam Comments Initial Comments: General: The patient is awake and alert, in no distress, and does not appear acutely ill. Eye: Pupils are equal, round and reactive to light, extra-ocular movements are intact. No nystagmus. There is normal conjunctiva bilaterally. No signs of icterus. Cardiovascular: There is a regular rate and rhythm. No murmur, rub or gallop is appreciated. Respiratory: Lungs are clear to auscultation, respirations are non-labored, breath sounds are equal. No wheezes, stridor, rales, or rhonchi. Musculoskeletal: Normal ROM, no tenderness. Strength 5/5. Sensation intact. Pulses equal bilaterally 2+. Neurological: A&O x 3. CN II-XII intact grossly, There are no obvious motor or sensory deficits. Coordination appears grossly intact. Speech is normal. Skin: Skin is warm and dry and no rashes, smalled raised 1cm round red localized, no fluctulant lesions x2 on the right LE. Large healing abrsion of the right LE superior to the small round lesion. Shaved legs. Psychiatric: Cooperative, appropriate mood & affect, normal judgment. Limitations: no limitations Course Vital Signs 08/26/19 19:58 Temperature 97.9 F Pulse Rate 78 Respiratory 16 Rate Blood Pressure 116/72 O2 Sat by Pulse 98 Oximetry Medical Decision Making - Medical Decision Making 18-year-old female presenting for evaluation of possible infection. There is evidence of for vocal on examination. There is a healing abrasion. No signs of complicating process at this time. No diffuse cellulitis. No fluctuant abscess. No drainable collections appreciated. At this time I recommended warm compresses. Patient provided prescription for Keflex and was discharged appearing well return parameters discussed Disposition Clinical Impression: Abrasion, Folliculitis Disposition: HOME SELF-CARE Condition: Good Instructions (If sedation given, give patient instructions): Folliculitis (ED), Abrasion (ED) Additional Instructions: Please use medication as discussed. Please follow-up with family doctor in the next 2 days. Please apply neosporin topically as discussed. Please return to emergency room if the symptoms increase or worsen or for any other concerns. Prescriptions: Fluconazole [Diflucan] 150 mg PO ONCE PRN 1 Days #1 tab PRN Reason: Vaginal Irritation Cephalexin [Keflex] 500 mg PO Q8HR 5 Days #15 cap Is patient prescribed a controlled substance at d/c from ED?: No Referrals: Navin Mccarthy MD [Primary Care Provider] - 1-2 days Time of Disposition: 20:07
[2019-08-26] MEDS ORDERED: CEPHALEXIN 500MG STARTER PACK 4 CAP BTL PO STA (20:08)
== END 2019-08-26 20:22 | disposition home or self-care (01) ==
LOC: EC 19:46
DX: S80.811A Abrasion, right lower leg, initial encounter (principal); L73.9 Follicular disorder, unspecified; F17.200 Nicotine dependence, unspecified, uncomplicated; Z88.2 Allergy status to sulfonamides; W01.0XXA Fall on same level from slipping, tripping and stumbling without subsequent striking against object, initial encounter
CPT/HCPCS: 99283

== ENCOUNTER 2019-12-22 03:23 | Emergency (ER) | payer BC, OTHER ==
[2019-12-22 03:29] VITALS: BP 119/85; PULSE 109; RESP 20
[2019-12-22] MEDS ORDERED: ACETAMINOPHEN TAB 500 MG TAB PO STA (03:53)
[2019-12-22] MEDS ORDERED: KETOROLAC 30 MG/ML 1 ML VIAL IM STA (03:53)
[2019-12-22 03:57] LABS: Appearance,Urine Cloudy (Clear); Bacteria,Urine Occasional /hpf; Bilirubin,Urine Negative (Negative); Blood,Urine Trace (Negative); Color,Urine Yellow; Glucose,Urine (UA) Negative (Negative); Ketones,Urine Negative (Negative); Leukocyte Esterase,Urine Large (Negative); Mucus,Urine Rare /hpf; Nitrite,Urine Negative (Negative); Protein,Urine Trace (Negative); RBC,Urine 12 /hpf (0-5); Specific Gravity,Urine 1.014 (1.001-1.035); Squamous Epithelial Cell,Urine 17 /hpf (0-4); Urobilinogen,Urine <2.0 mg/dL (<2.0); WBC,Urine 154 /hpf (0-5)
[2019-12-22 04:14] VITALS: TEMP 101.3
[2019-12-22] MEDS ORDERED: CEPHALEXIN 500MG STARTER PACK 4 CAP BTL PO STA (04:14)
[2019-12-22] MEDS ORDERED: cefTRIAXone 1,000 MG VIAL (IM USE) IM STA (04:14)
[2019-12-22] MEDS ORDERED: ONDANSETRON 4 MG ODT STARTER PACK 2 TAB BTL PO STA (04:14)
--- NOTE | 2019-12-22 04:16 | ED ---
Female Urogenital HPI - General Chief complaint: Urogenital Stated complaint: Kidney pain Time Seen by Provider: 12/22/19 03:49 Source: patient Mode of arrival: ambulatory Limitations: no limitations - History of Present Illness Initial comments: 19-year-old female patient presents to the emergency department today for evaluation of right flank pain, dysuria, and urinary urgency. Patient states she's been having symptoms for the last couple of days but they worsened today. Patient states she is having chills and feels feverish. Denies any nausea or vomiting. Denies any hematuria. She denies any abnormal vaginal bleeding or discharge. Patient denies concern for sexually transmitted infections. Patient states she has had kidney infection in the past. Patient denies any recent rash, shortness breath, chest pain, abdominal pain, diarrhea, constipation, back pain, numbness, tingling, dizziness, weakness, headache, visual changes, or any other complaints. - Related Data Home Medications Medication Instructions Recorded Confirmed Pnv,Calcium 72/Iron/Folic Acid 1 tab PO DAILY 07/17/18 01/27/19 [ Plus Tablet] Previous Rx's Medication Instructions Recorded Ibuprofen [Motrin] 600 mg PO Q6HR PRN #30 tab 01/28/19 Cephalexin [Keflex] 500 mg PO Q8HR 5 Days #15 cap 08/26/19 Fluconazole [Diflucan] 150 mg PO ONCE PRN 1 Days #1 tab 08/26/19 Cephalexin [Keflex] 500 mg PO Q6HR #40 cap 12/22/19 Ibuprofen [Motrin] 600 mg PO Q8HR PRN #30 tab 12/22/19 Ondansetron [Zofran ODT] 4 mg PO Q8HR PRN #10 tab 12/22/19 Allergies Allergy/AdvReac Type Severity Reaction Status Date / Time sulfamethoxazole AdvReac Vomiting Verified 12/22/19 03:26 [From Bactrim] trimethoprim [From Bactrim] AdvReac Vomiting Verified 12/22/19 03:26 Review of Systems ROS Statement: Those systems with pertinent positive or pertinent negative responses have been documented in the HPI. ROS Other: All systems not noted in ROS Statement are negative. Past Medical History Past Medical History: No Reported History Additional Past Medical History / Comment(s): IBS History of Any Multi-Drug Resistant Organisms: None Reported Past Surgical History: No Surgical Hx Reported Past Anesthesia/Blood Transfusion Reactions: No Reported Reaction Past Psychological History: Anxiety Smoking Status: Current every day smoker Past Alcohol Use History: None Reported Past Drug Use History: Marijuana - Past Family History Mother Family Medical History: Hyperlipidemia, Hypertension, Thyroid Disorder Additional Family Medical History / Comment(s): IBS, degenerative disc disease, divertic, skin cancer General Exam Limitations: no limitations General appearance: alert, in no apparent distress, other (this is a well- developed, well-nourished adult female patient in no acute distress.) Respiratory exam: Present: normal lung sounds bilaterally. Absent: respiratory distress, wheezes, rales, rhonchi, stridor Cardiovascular Exam: Present: regular rate, normal rhythm, normal heart sounds. Absent: systolic murmur, diastolic murmur, rubs, gallop, clicks GI/Abdominal exam: Present: soft, normal bowel sounds. Absent: distended, tenderness, guarding, rebound, rigid Back exam: Present: normal inspection, CVA tenderness (R). Absent: CVA tenderness (L) Neurological exam: Present: alert, oriented X3, CN II-XII intact Psychiatric exam: Present: normal affect, normal mood Skin exam: Present: warm, dry, intact, normal color. Absent: rash Course Vital Signs 12/22/19 12/22/19 03:26 03:50 Temperature 99.3 F 101.3 F H Pulse Rate 109 H Respiratory 20 Rate Blood Pressure 119/85 O2 Sat by Pulse 96 Oximetry Medical Decision Making - Medical Decision Making 19-year-old female patient presents to the emergency department today for evaluation of right flank pain, fever, and urinary symptoms. Physical examination did reveal mild right CVA tenderness. No abdominal tenderness. Urinalysis is positive for infection. She is not . Patient is tolerating oral intake. We will give an IM dose of Rocephin here in the emergency department. She will be discharged with prescriptions for Keflex, i buprofen, and Zofran. She is given strict instructions to return if she is vomiting and unable to hold down her medications. She is instructed to follow-up with her primary care physician for recheck in 1-2 days. Return parameters were discussed in detail. She verbalizes understanding and agrees with this plan. - Lab Data Lab Results 12/22/19 12/22/19 Range/Units 03:35 03:35 Urine Color Yellow Urine Appearance Cloudy H (Clear) Urine pH 6.0 (5.0-8.0) Ur Specific [place] 1.014 (1.001-1.035) Urine Protein Trace H (Negative) Urine Glucose (UA) Negative (Negative) Urine Ketones Negative (Negative) Urine Blood Trace H (Negative) Urine Nitrite Negative (Negative) Urine Bilirubin Negative (Negative) Urine Urobilinogen <2.0 (<2.0) mg/dL Ur Leukocyte Esterase Large H (Negative) Urine RBC 12 H (0-5) /hpf Urine WBC 154 H (0-5) /hpf Ur Squamous Epith Cells 17 H (0-4) /hpf Urine Bacteria Occasional H (None) /hpf Urine Mucus Rare H (None) /hpf Urine HCG, Qual Not Detected (Not Detectd) Disposition Clinical Impression: Urinary tract infection Disposition: HOME SELF-CARE Condition: Good Instructions (If sedation given, give patient instructions): Urinary Tract Infection in Women (ED) Additional Instructions: Increase fluids. Rest. Take medications as directed. Complete all antibiotics in full even if you are feeling better. Return for further evaluation if you start vomiting and are unable to keep down your antibiotics. Follow-up with your primary care physician for recheck in 1-2 days. Return to the emergency department immediately for any new, worsening, or concerning symptoms. Prescriptions: Cephalexin [Keflex] 500 mg PO Q6HR #40 cap Ibuprofen [Motrin] 600 mg PO Q8HR PRN #30 tab PRN Reason: Pain Ondansetron [Zofran ODT] 4 mg PO Q8HR PRN #10 tab PRN Reason: Nausea Is patient prescribed a controlled substance at d/c from ED?: No Referrals: Navin Mccarthy MD [Primary Care Provider] - 1-2 days Time of Disposition: 04:16
== END 2019-12-22 04:42 | disposition home or self-care (01) ==
LOC: EC 03:23
DX: N39.0 Urinary tract infection, site not specified (principal); F17.200 Nicotine dependence, unspecified, uncomplicated; Z88.2 Allergy status to sulfonamides; Z87.19 Personal history of other diseases of the digestive system
CPT/HCPCS: 81001; 81025; 87086; 96372 ×2; 99284; J0696; J1885; S0119; 87077; 87186

== ENCOUNTER 2021-03-26 10:14 | Emergency (ER) | payer BC, OTHER ==
[2021-03-26 10:21] VITALS: RESP 18; TEMP 97.9
[2021-03-26 11:10] LABS: Basophils % (A) 0 %; Eosinophils # (A) 0.2 k/uL (0-0.7); Eosinophils % (A) 2 %; HCT 42.3 % (34.0-46.0); HGB 14.3 gm/dL (11.4-16.0); Lymphocytes # (A) 2.8 k/uL (1.0-4.8); Lymphocytes % (A) 25 %; MCH 32.4 pg (25.0-35.0); MCHC 33.9 g/dL (31.0-37.0); MCV 95.6 fL (80.0-100.0); Mean Platelet Volume 7.4; Monocytes # (A) 0.6 k/uL (0-1.0); Monocytes % (A) 6 %; Neutrophils # (A) 7.3 k/uL (1.3-7.7); Neutrophils % (A) 66 %; Platelet Count 243 k/uL (150-450); RBC 4.43 m/uL (3.80-5.40); RDW 12.2 % (11.5-15.5)
[2021-03-26 11:24] LABS: African American GFR (CKD) >90 (>60 ml/min/1.73 sqM); Anion Gap 7 mmol/L; Blood Urea Nitrogen 13 mg/dL (7-17); Calcium 9.7 mg/dL (8.4-10.2); Carbon Dioxide 27 mmol/L (22-30); Chloride 103 mmol/L (98-107); Glucose 97 mg/dL (74-99); Non-African American GFR(CKD) >90 (>60 ml/min/1.73 sqM); Sodium 137 mmol/L (137-145)
[2021-03-26 11:38] LABS: RBC,Urine >182 /hpf (0-5); Squamous Epithelial Cell,Urine 3 /hpf (0-4)
[2021-03-26 11:40] LABS: Appearance,Urine Bloody (Clear); Color,Urine Red
[2021-03-26 11:41] LABS: HCG,Quantitative Serum 12028.1 mIU/mL
--- NOTE | 2021-03-26 11:46 | ED ---
Female Urogenital HPI - General Chief complaint: Vaginal Bleeding Stated complaint: vaginal bleeding Time Seen by Provider: 03/26/21 10:49 Source: patient, RN notes reviewed Mode of arrival: ambulatory Limitations: no limitations - History of Present Illness Initial comments: This a 20-year-old female presents emergency from she went of vaginal bleeding in early . Patient states that she found that she was a few weeks ago. Patient is A0 states she is scheduled see Dr. Rowe Sunday but states that she rescheduled secondary to some spotting. Patient states now increasing bleeding. She has mild abdominal cramping. No fevers or chills no nausea vomiting no other complaints. - Related Data Home Medications Medication Instructions Recorded Confirmed No Known Home Medications 03/26/21 03/26/21 Allergies Allergy/AdvReac Type Severity Reaction Status Date / Time sulfamethoxazole AdvReac Vomiting Verified 03/26/21 11:52 [From Bactrim] trimethoprim [From Bactrim] AdvReac Vomiting Verified 03/26/21 11:52 Review of Systems ROS Statement: Those systems with pertinent positive or pertinent negative responses have been documented in the HPI. ROS Other: All systems not noted in ROS Statement are negative. Past Medical History Past Medical History: No Reported History Additional Past Medical History / Comment(s): IBS History of Any Multi-Drug Resistant Organisms: MRSA Date of last positivie culture/infection: R leg MDRO Source:: 2019 Past Surgical History: No Surgical Hx Reported Past Anesthesia/Blood Transfusion Reactions: No Reported Reaction Past Psychological History: Anxiety Smoking Status: Current every day smoker Past Alcohol Use History: Occasional Past Drug Use History: Marijuana - Past Family History Mother Family Medical History: Hyperlipidemia, Hypertension, Thyroid Disorder Additional Family Medical History / Comment(s): IBS, degenerative disc disease, divertic, skin cancer General Exam Limitations: no limitations General appearance: alert, in no apparent distress Head exam: Present: atraumatic, normocephalic, normal inspection Respiratory exam: Present: normal lung sounds bilaterally. Absent: respiratory distress, wheezes, rales, rhonchi, stridor Cardiovascular Exam: Present: regular rate (Patient was tachycardic on triage), normal rhythm, normal heart sounds. Absent: systolic murmur, diastolic murmur, rubs, gallop, clicks GI/Abdominal exam: Present: soft, normal bowel sounds. Absent: distended, tenderness, guarding, rebound, rigid Back exam: Absent: CVA tenderness (R), CVA tenderness (L) Neurological exam: Present: alert Skin exam: Present: warm, dry, intact, normal color. Absent: rash Course Vital Signs 03/26/21 10:18 Temperature 97.9 F Pulse Rate 117 H Respiratory 18 Rate Blood Pressure 119/72 O2 Sat by Pulse 99 Oximetry Medical Decision Making - Medical Decision Making Patient's ultrasound shows debris within the cervix, passing. Patient's bleeding is slowing nonhemorrhagic this time. Patient vitals are stable hemoglobin is stable patient is A- blood type will be given RhoGAM prior to discharge. - Lab Data Result diagrams: 03/26/21 11:02 03/26/21 11:02 Lab Results 03/26/21 03/26/21 03/26/21 Range/Units 11:02 11:02 11:02 WBC 11.0 H (3.8-10.6) k/uL RBC 4.43 (3.80-5.40) m/uL Hgb 14.3 (11.4-16.0) gm/dL Hct 42.3 (34.0-46.0) % MCV 95.6 (80.0-100.0) fL MCH 32.4 (25.0-35.0) pg MCHC 33.9 (31.0-37.0) g/dL RDW 12.2 (11.5-15.5) % Plt Count 243 (150-450) k/uL MPV 7.4 Neutrophils % 66 % Lymphocytes % 25 % Monocytes % 6 % Eosinophils % 2 % Basophils % 0 % Neutrophils # 7.3 (1.3-7.7) k/uL Lymphocytes # 2.8 (1.0-4.8) k/uL Monocytes # 0.6 (0-1.0) k/uL Eosinophils # 0.2 (0-0.7) k/uL Basophils # 0.0 (0-0.2) k/uL Sodium 137 (137-145) mmol/L Potassium 4.0 (3.5-5.1) mmol/L Chloride 103 (98-107) mmol/L Carbon Dioxide 27 (22-30) mmol/L Anion Gap 7 mmol/L BUN 13 (7-17) mg/dL Creatinine 0.72 (0.52-1.04) mg/dL Est GFR (CKD-EPI)AfAm >90 (>60 ml/min/1.73 sqM) Est GFR (CKD-EPI)NonAf >90 (>60 ml/min/1.73 sqM) Glucose 97 (74-99) mg/dL Calcium 9.7 (8.4-10.2) mg/dL HCG, Quant 22933.1 mIU/mL Urine Color Red Urine Appearance Bloody H (Clear) Urine RBC >182 H (0-5) /hpf Ur Squamous Epith Cells 3 (0-4) /hpf Blood Type Blood Type Recheck Bld Type Recheck Status 03/26/21 Range/Units 11:02 WBC (3.8-10.6) k/uL RBC (3.80-5.40) m/uL Hgb (11.4-16.0) gm/dL Hct (34.0-46.0) % MCV (80.0-100.0) fL MCH (25.0-35.0) pg MCHC (31.0-37.0) g/dL RDW (11.5-15.5) % Plt Count (150-450) k/uL MPV Neutrophils % % Lymphocytes % % Monocytes % % Eosinophils % % Basophils % % Neutrophils # (1.3-7.7) k/uL Lymphocytes # (1.0-4.8) k/uL Monocytes # (0-1.0) k/uL Eosinophils # (0-0.7) k/uL Basophils # (0-0.2) k/uL Sodium (137-145) mmol/L Potassium (3.5-5.1) mmol/L Chloride (98-107) mmol/L Carbon Dioxide (22-30) mmol/L Anion Gap mmol/L BUN (7-17) mg/dL Creatinine (0.52-1.04) mg/dL Est GFR (CKD-EPI)AfAm (>60 ml/min/1.73 sqM) Est GFR (CKD-EPI)NonAf (>60 ml/min/1.73 sqM) Glucose (74-99) mg/dL Calcium (8.4-10.2) mg/dL HCG, Quant mIU/mL Urine Color Urine Appearance (Clear) Urine RBC (0-5) /hpf Ur Squamous Epith Cells (0-4) /hpf Blood Type A Negative Blood Type Recheck A Neg Bld Type Recheck Status No Disposition Clinical Impression: Miscarriage Disposition: HOME SELF-CARE Condition: Stable Instructions (If sedation given, give patient instructions): Miscarriage (ED) Additional Instructions: Please return to the Emergency Department if symptoms worsen or any other concerns. Is patient prescribed a controlled substance at d/c from ED?: No Referrals: Navin Mccarthy MD [Primary Care Provider] - 1-2 days Deidra Rowe DO [Doctor of Osteopathic Medicine] - 1-2 days Time of Disposition: 12:37
--- NOTE | 2021-03-26 12:18 | US ---
EXAMINATION TYPE: Ultrasound OB <= 14 weeks transvaginal DATE OF EXAM: 03/26/2021 11:35 AM COMPARISON: NONE CLINICAL HISTORY: 20-year-old female pain, bleeding. heavy vaginal bleeding EXAM PERFORMED: Transvaginal (TV) and Transabdominal (TA) FINDINGS: EXAM MEASUREMENTS: GESTATIONAL AGE / DATING Physician Established: Not yet established Dates by LMP: LMP unknown Dates by First Scan: No previous, this is first scan Dates by Current Scan for: No IUP seen at this time MATERNAL ANATOMY Uterus: 7.6 x 4.6 x 5.0cm Right Ovary: 2.6 x 1.4 x 2.3cm Left Ovary: 3.0 x 1.9 x 2.6cm Post CDS / Adnexa: appears wnl Presence of free fluid: no Presence of corpus luteal cyst: isoechoic area left ovary = 1.7 x 1.3 x 2.1cm GESTATION / SURVEY IUP: No IUP seen at this time possible elongated GS with pole (no heart tones) within cervix vs fluid collection and debris Date of LMP: unknown Beta HcG (if available): Not available at this time IMPRESSION: Either fluid with debris along the lower uterine segment/endocervical canal versus failed o n its way out. No visualized normal intrauterine at this time. Pseudogestational sac of a n onvisualized ectopic is also a consideration. Correlate with beta hCG values and ultrasound follow-up.
[2021-03-26] MEDS ORDERED: Rhogam IMMUNE GLOBULIN 1,500 UNIT/1 ML IM ONE (12:31)
[2021-03-26 12:36] VITALS: BP 115/77
[2021-03-26 13:41] VITALS: PULSE 98
== END 2021-03-26 13:40 | disposition home or self-care (01) ==
LOC: EC 10:14
DX: O03.9 Complete or unspecified spontaneous abortion without complication (principal); O99.331 Smoking (tobacco) complicating pregnancy, first trimester; F17.200 Nicotine dependence, unspecified, uncomplicated; Z88.2 Allergy status to sulfonamides
CPT/HCPCS: 99284; 36415; 86900; 86901; 80048; 85025; 86850; 81001; 84702; 76801; 76817; J2790

== ENCOUNTER 2023-07-20 06:00 | Inpatient (IN) | payer OTHER ==
[2023-07-20] MEDS ORDERED: TRANEXAMIC 1,000 MG/100ML-NACL 1,000 MG in EMPTY BAG 1 BAG IV PRN (06:11)
[2023-07-20] MEDS ORDERED: TERBUTALINE 1 MG/ML VIAL SQ PRN (06:11)
[2023-07-20] MEDS ORDERED: miSOPROStoL 200 MCG TAB PO PRN (06:11)
[2023-07-20] MEDS ORDERED: LIDOCAINE 0.5% (PF) 5 MG/ML (50 ML SDV) SQ PRN (06:11)
[2023-07-20] MEDS ORDERED: METHYLERGONOVINE 0.2 MG/ML 1 ML AMP IM PRN (06:11)
[2023-07-20] MEDS ORDERED: OXYTOCIN 10 UNIT/ML 1 ML VIAL IM PRN (06:11)
[2023-07-20] MEDS ORDERED: CARBOPROST TROMETHAMINE 250 MCG/ML 1 ML AMP IM PRN (06:11)
[2023-07-20] MEDS ORDERED: OXYTOCIN 30 UNITS/500 ML NS 30 UNIT in SALINE 1 500ML.BAG IV SCH ×2 (06:15→22:30)
[2023-07-20] MEDS: LACTATED RINGERS 1,000 ML IV SCH ×3 (06:24→12:11)
[2023-07-20 06:34] LABS: Basophils % (A) 0 %; Eosinophils # (A) 0.1 k/uL (0-0.7); Eosinophils % (A) 1 %; HCT 34.5 % (34.0-46.0); HGB 11.6 gm/dL (11.4-16.0); Lymphocytes # (A) 2.8 k/uL (1.0-4.8); Lymphocytes % (A) 19 %; MCH 31.4 pg (25.0-35.0); MCHC 33.6 g/dL (31.0-37.0); MCV 93.5 fL (80.0-100.0); Mean Platelet Volume 8.3; Monocytes # (A) 0.7 k/uL (0-1.0); Monocytes % (A) 5 %; Neutrophils # (A) 10.7 k/uL (1.3-7.7); Neutrophils % (A) 73 %; Platelet Count 341 k/uL (150-450); RBC 3.69 m/uL (3.80-5.40); RDW 12.9 % (11.5-15.5); WBC 14.8 k/uL (3.8-10.6)
[2023-07-20 08:04] LABS: INR 0.9 (<1.2); Prothrombin Time 9.6 sec (9.0-12.0)
[2023-07-20] MEDS ORDERED: ROPIVACAINE 5 MG/ML 30 ML VIAL ONE (11:45)
[2023-07-20] MEDS ORDERED: fentaNYL (PF) 50 MCG/ML 5 ML AMP ONE (11:45)
[2023-07-20] MEDS ORDERED: SODIUM CHLORIDE 0.9% 250 ML BAG ONE (11:45)
[2023-07-20] MEDS ORDERED: ROPIVACAINE 225 MG, fentaNYL (PF). 450 MCG in SODIUM CHLORIDE 0.9% 171 ML EPIDURAL ONE (13:03)
[2023-07-20] MEDS ORDERED: Rhogam IMMUNE GLOBULIN 1,500 UNIT/1 ML IM ONE (22:24)
[2023-07-20] MEDS ORDERED: diphenhydrAMINE 25 MG CAP PO PRN (22:24)
[2023-07-20] MEDS ORDERED: LANOLIN CREAM 5 GM TUBE TOPICAL PRN (22:24)
[2023-07-20] MEDS ORDERED: ZOLPIDEM 5 MG TAB PO PRN (22:24)
[2023-07-20] MEDS ORDERED: BENZOCAINE/MENTHOL SPRAY 1 GM/SPRAY AEROSOL TOPICAL PRN (22:24)
[2023-07-20] MEDS ORDERED: SIMETHICONE 80 MG CHEWABLE PO PRN (22:24)
[2023-07-20] MEDS ORDERED: HYDROCORTISONE 2.5% RECTAL CREAM 30 GM TUBE RECTAL PRN (22:24)
[2023-07-20] MEDS ORDERED: diphenhydrAMINE 50 MG/ML 1 ML VIAL IVP PRN ×2 (22:24)
[2023-07-20] MEDS ORDERED: diphenhydrAMINE 50 MG CAP PO PRN (22:24)
--- NOTE | 2023-07-20 22:27 | P.HPOB ---
History of Present Illness H&P Date: 07/20/23 Chief Complaint: induction of labor 22-year-old G for P1 presents at 39 weeks for induction of labor. Her cervix was 2 cm dilated, 70% effaced, and -2 station. She was vipin irregularly. heart tones 140 with moderate variability and reactive. Review of Systems All systems: negative Constitutional: Denies chills, Denies fever Eyes: denies blurred vision, denies pain Ears, nose, mouth and throat: Denies headache, Denies sore throat Cardiovascular: Denies chest pain, Denies shortness of breath Respiratory: Denies cough Gastrointestinal: Denies abdominal pain, Denies diarrhea, Denies nausea, Denies vomiting Genitourinary: Denies dysuria, Denies hematuria Musculoskeletal: Denies myalgias Integumentary: Denies pruritus, Denies rash Neurological: Denies numbness, Denies weakness Psychiatric: Denies anxiety, Denies depression Endocrine: Denies fatigue, Denies weight change Past Medical History Past Medical History: No Reported History Additional Past Medical History / Comment(s): IBS History of Any Multi-Drug Resistant Organisms: MRSA Date of last positivie culture/infection: R leg MDRO Source:: 2018 Past Surgical History: No Surgical Hx Reported Past Anesthesia/Blood Transfusion Reactions: No Reported Reaction Past Psychological History: Anxiety Smoking Status: Vaper Past Drug Use History: None Reported - Past Family History Mother Family Medical History: Hyperlipidemia, Hypertension, Thyroid Disorder Additional Family Medical History / Comment(s): IBS, degenerative disc disease, divertic, skin cancer Medications and Allergies Home Medications Medication Instructions Recorded Confirmed Type Gwe-Dpcx-Xeioa Acid 1 cap PO HS 12/12/22 07/20/23 History [-U Capsule (formulary)] Allergies Allergy/AdvReac Type Severity Reaction Status Date / Time sulfamethoxazole AdvReac Vomiting Verified 07/20/23 06:11 [From Bactrim] trimethoprim [From Bactrim] AdvReac Vomiting Verified 07/20/23 06:11 Exam Osteopathic Statement: *. No significant issues noted on an osteopathic structural exam other than those noted in the History and Physical/Consult. Vital Signs Temp Pulse Resp BP Pulse Ox 07/20/23 06:10 97.7 F 101 H 16 132/75 97 Intake and Output 07/20/23 07/20/23 07/20/23 06:59 14:59 22:59 Other: Weight 102.965 kg Heart: Regular rate and rhythm Lungs: Clear to auscultation bilaterally Abdomen: Soft, nontender Extremities: Negative Homans sign Results Result Diagrams: 07/20/23 06:18 Abnormal Lab Results - Last 24 Hours (Table) 07/20/23 Range/Units 06:18 WBC 14.8 H (3.8-10.6) k/uL RBC 3.69 L (3.80-5.40) m/uL Neutrophils # 10.7 H (1.3-7.7) k/uL Assessment and Plan (1) Elective induction of labor planned Current Visit: Yes Status: Acute Code(s): [id number] - SNOMED Code(s): 407411777 Plan: 1. Induction of labor with amniotomy and Pitocin 2. Anticipate normal vaginal delivery
--- NOTE | 2023-07-20 22:29 | P.PROBDLV ---
Vaginal Delivery Note - . Vaginal Delivery Note: 22-year-old G for P1 presents at 39 weeks for induction of labor. Her cervix was 2 cm dilated, 70% effaced, and -2 station. She was vipin irregularly. heart tones 140 with moderate variability and reactive. Pitocin augmentation was started. Amniotomy performed at 7:20 AM and clear fluid noted. Patient progressed slowly throughout the day and did get an epidural. She was comfortable with epidural. When the patient was 6 centers dilated the baby was thought to be in OP position. The patient went through some position changes and the bed and she was complete at 2158. She pushed, delivered a viable female infant over intact perineum under epidural anesthesia at 2206. Head delivered OA, nuchal cord 1 easily reduced, anterior shoulder delivered gentle downward guidance for by posterior shoulder and rest of body. Nose and mouth bulb suctioned, cord clamped and cut, infant placed mother's abdomen. Apgars 8, 9, weight 8 pounds 4.5 ounces. Placenta delivered spontaneously, intact with three-vessel cord at 2210. Vagina, cervix, perineum inspected. A small left labial laceration was repaired with 3-0 Vicryl. Estimated blood loss 100 mL. Mother and baby in stable condition.
[2023-07-20] MEDS: IBUPROFEN 600 MG TAB PO PRN (23:58)
[2023-07-21] MEDS ORDERED: ONDANSETRON 4 MG/2 ML VIAL IVP PRN (00:30)
[2023-07-21] MEDS: ACETAMINOPHEN TAB 325 MG TAB PO PRN ×3 (03:37→18:01)
[2023-07-21 06:53] LABS: Basophils % (A) 0 %; Eosinophils # (A) 0.1 k/uL (0-0.7); Eosinophils % (A) 0 %; HCT 33.3 % (34.0-46.0); HGB 11.2 gm/dL (11.4-16.0); Lymphocytes # (A) 2.6 k/uL (1.0-4.8); Lymphocytes % (A) 12 %; MCH 32.5 pg (25.0-35.0); MCHC 33.6 g/dL (31.0-37.0); MCV 96.5 fL (80.0-100.0); Monocytes # (A) 1.2 k/uL (0-1.0); Monocytes % (A) 5 %; Neutrophils # (A) 17.7 k/uL (1.3-7.7); Neutrophils % (A) 81 %; Platelet Count 311 k/uL (150-450); RBC 3.45 m/uL (3.80-5.40); RDW 12.7 % (11.5-15.5); WBC 21.9 k/uL (3.8-10.6)
[2023-07-21] MEDS: IBUPROFEN 600 MG TAB PO PRN ×2 (08:46→14:39)
[2023-07-21] MEDS: SENNOSIDES-DOCUSATE SODIUM 1 EACH TAB PO SCH ×2 (08:46→20:44)
--- NOTE | 2023-07-21 09:57 | P.PNOBGVD ---
Subjective - Subjective Principal diagnosis: Status post total vaginal delivery day #1 Interval history: Patient seen and examined. Denies nausea, vomiting, chest pain, shortness of breath or calf pain. Patient reports: Reports appetite normal, Reports voiding normally, Reports pain well controlled, Reports ambulating normally [place]: doing well Objective - Latest Vital Signs Latest vital signs: Vital Signs Temp Pulse Resp BP Pulse Ox 07/21/23 08:00 97.8 F 69 17 120/69 07/21/23 04:00 98.2 F 82 15 115/72 97 07/21/23 00:25 97.9 F 91 16 121/63 07/20/23 23:55 86 16 118/60 07/20/23 23:25 70 16 127/77 07/20/23 23:10 100 16 140/67 07/20/23 22:55 100 16 132/62 07/20/23 22:40 105 H 16 143/75 07/20/23 22:25 97.9 F 105 H 18 135/73 Intake and Output 07/20/23 07/21/23 07/21/23 22:59 06:59 14:59 Intake Total 167 Output Total 400 335 Balance -233 -335 Intake: Intake, IV Titration 167 Amount Oxytocin 30 Units/500 ml 167 Ns 30 unit In Saline 1 500ml.bag @ Per Protocol IV .[facility]0M [facility] Rx#:[id number] Output: Urine 300 Estimated Blood Loss 100 Output, Quantitative 335 Blood Loss Other: # Voids 1 2 - Exam Lungs: bilateral: normal Chest: Normal S1, Normal S2 Extremities: Present: normal Abdomen: Present: normal appearance, soft Uterus: Present: normal, firm - Labs Labs: Abnormal Lab Results - Last 24 Hours (Table) 07/21/23 Range/Units 06:26 WBC 21.9 H (3.8-10.6) k/uL RBC 3.45 L (3.80-5.40) m/uL Hgb 11.2 L (11.4-16.0) gm/dL Hct 33.3 L (34.0-46.0) % Neutrophils # 17.7 H (1.3-7.7) k/uL Monocytes # 1.2 H (0-1.0) k/uL Assessment and Plan (1) Elective induction of labor planned Current Visit: Yes Status: Resolved Code(s): [id number] - SNOMED Code(s): 816556339 (2) Status post normal vaginal delivery Current Visit: Yes Status: Acute Code(s): [id number] - SNOMED Code(s): 783261916 Plan: 1. continue care
[2023-07-21 16:39] VITALS: RESP 16
[2023-07-22] MEDS: IBUPROFEN 600 MG TAB PO PRN (08:01)
[2023-07-22] MEDS: SENNOSIDES-DOCUSATE SODIUM 1 EACH TAB PO SCH (08:03)
[2023-07-22 08:08] VITALS: BP 117/75; PULSE 62; TEMP 98.4
--- NOTE | 2023-07-22 10:31 | P.DS ---
Providers Date of admission: 07/20/23 06:02 Expected date of discharge: 07/22/23 Attending physician: Deidra Rowe Primary care physician: Stated None - Discharge Diagnosis(es) (1) Elective induction of labor planned Current Visit: Yes Status: Resolved (2) Status post normal vaginal delivery Current Visit: Yes Status: Acute Hospital Course: She presented for induction of labor. She underwent a normal vaginal delivery. course has been uneventful. She denies nausea, vomiting, chest pain, shortness of breath or calf pain. Patient will be discharged home day #2 in stable condition to follow-up with me in 6 weeks. Plan - Discharge Summary New Discharge Prescriptions: New Ibuprofen [Motrin] 600 mg PO Q6HR PRN #30 tab PRN Reason: Mild Pain Or Fever >= 100.5 No Action Wmg-Alup-Aijfd Acid [-U Capsule (formulary)] 1 cap PO HS Discharge Medication List Zrz-Nnqu-Putun Acid [-U Capsule (formulary)] 1 cap PO HS 12/12/22 [History] Ibuprofen [Motrin] 600 mg PO Q6HR PRN #30 tab 07/22/23 [Rx] Follow up Appointment(s)/Referral(s): Deidra Rowe DO [Doctor of Osteopathic Medicine] - 1 Week (PP 09/03/2023 @10:45 Am) Discharge Disposition: HOME SELF-CARE
== END 2023-07-22 11:34 | disposition home or self-care (01) | DRG 560 ==
LOC: 4FBP 06:02
PROVIDERS: ADMIT Obstetrics & Gynecology; ATTEND Obstetrics & Gynecology
PROC: 10E0XZZ Delivery of Products of Conception, External Approach (ICD-10-PCS; principal; 2023-07-20)
PROC: 0HQ9XZZ Repair Perineum Skin, External Approach (ICD-10-PCS; principal; 2023-07-20)
PROC: 10907ZC Drainage of Amniotic Fluid, Therapeutic from Products of Conception, Via Natural or Artificial Opening (ICD-10-PCS; 2023-07-20)
PROC: 3E0DXGC Introduction of Other Therapeutic Substance into Mouth and Pharynx, External Approach (ICD-10-PCS; 2023-07-20)
PROC: 3E033VJ Introduction of Other Hormone into Peripheral Vein, Percutaneous Approach (ICD-10-PCS; 2023-07-20)
DX: O69.81X0 Labor and delivery complicated by cord around neck, without compression, not applicable or unspecified (principal); O70.0 First degree perineal laceration during delivery; Z37.0 Single live birth; Z3A.39 39 weeks gestation of pregnancy; Z28.310 Unvaccinated for COVID-19; Z79.899 Other long term (current) drug therapy; Z86.14 Personal history of Methicillin resistant Staphylococcus aureus infection; Z88.2 Allergy status to sulfonamides
CPT/HCPCS: 85025; 85610; 85730; 86850; 86900; 86901

== ENCOUNTER 2023-12-19 08:56 | Emergency (ER) | payer OTHER ==
[2023-12-19] MEDS: guaiFENesin-Coden 100-10MG/5ML 10 ML CUP PO STA (09:23)
--- NOTE | 2023-12-19 09:23 | ED ---
SOB HPI - General Chief Complaint: Shortness of Breath Stated Complaint: SOB Time Seen by Provider: 12/19/23 09:08 Source: patient, RN notes reviewed Mode of arrival: ambulatory Limitations: no limitations - History of Present Illness Initial Comments: This is a 23-year-old female who presents to the emergency department for coughing, congestion, and shortness of breath. Symptoms started about a week ago, but are worsening over the last couple of days. Cough is described as productive. She went to urgent care yesterday and was diagnosed with a double ear infection. She does have a history of asthma and was started on Augmentin, prednisone, albuterol breathing treatments, and an albuterol inhaler. States that she has been using her breathing treatments without any relief in symptoms. They did not do a chest x-ray or test her for any viral illnesses. MD Complaint: shortness of breath, cough - Related Data Home Medications Medication Instructions Recorded Confirmed Fqe-Fkrr-Bjhpz Acid 1 cap PO HS 12/12/22 07/20/23 [-U Capsule (formulary)] Previous Rx's Medication Instructions Recorded Ibuprofen [Motrin] 600 mg PO Q6HR PRN #30 tab 07/22/23 Ipratropium-Albuterol Nebulize 3 ml INHALATION Q4-6H PRN #90 ml 12/19/23 [Duoneb 0.5 mg-3 mg/3 ml Soln] Promethazine/Dextromethorphan 5 ml PO Q4-6H PRN #473 ml 12/19/23 [Promethazine-Dm Syrup] predniSONE 50 mg PO DAILY 5 Days #5 tab 12/19/23 Allergies Allergy/AdvReac Type Severity Reaction Status Date / Time sulfamethoxazole AdvReac Vomiting Verified 12/19/23 09:05 [From Bactrim] trimethoprim [From Bactrim] AdvReac Vomiting Verified 12/19/23 09:05 Review of Systems ROS Statement: Those systems with pertinent positive or pertinent negative responses have been documented in the HPI. ROS Other: All systems not noted in ROS Statement are negative. Past Medical History Past Medical History: No Reported History Additional Past Medical History / Comment(s): IBS History of Any Multi-Drug Resistant Organisms: MRSA Date of last positivie culture/infection: R leg MDRO Source:: 2019 Past Surgical History: No Surgical Hx Reported Past Anesthesia/Blood Transfusion Reactions: No Reported Reaction Past Psychological History: Anxiety Smoking Status: Vaper Past Drug Use History: None Reported - Past Family History Mother Family Medical History: Hyperlipidemia, Hypertension, Thyroid Disorder Additional Family Medical History / Comment(s): IBS, degenerative disc disease, divertic, skin cancer General Exam Limitations: no limitations General appearance: alert, in no apparent distress Head exam: Present: atraumatic, normocephalic, normal inspection Respiratory exam: Present: wheezes, decreased breath sounds, prolonged expiratory Cardiovascular Exam: Present: regular rate, normal rhythm, normal heart sounds. Absent: systolic murmur, diastolic murmur, rubs, gallop, clicks Neurological exam: Present: alert, oriented X3, CN II-XII intact Psychiatric exam: Present: normal affect, normal mood Skin exam: Present: warm, dry, intact, normal color. Absent: rash Course Vital Signs 12/19/23 12/19/23 12/19/23 09:03 09:12 10:42 Temperature 98.7 F Pulse Rate 91 94 Respiratory 18 22 Rate Blood Pressure 146/77 O2 Sat by Pulse 100 Oximetry 12/19/23 12/19/23 10:48 11:30 Temperature 98.3 F Pulse Rate 90 80 Respiratory 16 Rate Blood Pressure 123/77 O2 Sat by Pulse 99 Oximetry Medical Decision Making - Medical Decision Making This is a 23 year old female who presents to the emergency department for coughing and shortness of breath. Was pt. sent in by a medical professional or institution? @ -No Did you speak to anyone other than the patient for history? @ -No Did you review nursing and triage notes? @ -Yes, and I agree, it is accurate with regards to the patient's symptoms. Were old charts reviewed? @ -No Differential Diagnosis? @ -Differential Cough: Influenza, Covid, RSV, croup, allergic rhinitis, GERD, pneumonia, bronchitis, COPD, viral pharyngitis, streptococcal pharyngitis, this is not meant to be an all-inclusive list. EKG interpreted by me (3pts min.)? @ -Not obtained X-rays interpreted by me (1pt min.)? @ -Chest x-ray obtained, my interpretation identifies no localized consolidations or infiltrates. CT interpreted by me (1pt min.)? @ -Not obtained U/S interpreted by me (1pt. min.)? @ -Not obtained What testing was considered but not performed? (CT, X-rays, U/S, labs)? Why? @ -None What meds were considered but not given? Why? @ -None Did you discuss the management of the patient with other professionals? @ -No Did you reconcile home meds? @ -No Was smoking cessation discussed for >3mins.? @ -I discussed smoking cessation for greater than 3 minutes. The risk of smoking were discussed with the patient including but not limited to risks of cancer, stroke, coronary artery disease and COPD. Also discussed with patient were multiple methods of quitting smoking. Lastly we discussed the financial cost of smoking. Was critical care preformed (if so, how long)? @ -No Were there social determinants of health that impacted care today? How? (Homelessness, low income, unemployed, alcoholism, drug addiction, transportation, low edu. Level, literacy, decrease access to med. care, half-way, rehab)? @ -No Was there de-escalation of care discussed even if they declined? (Discuss DNR or withdrawal of care, Hospice)? @ -No What co-morbidities impacted this encounter? (DM, HTN, Smoking, COPD, CAD, Cancer, CVA, Hep., AIDS, mental health diagnosis, sleep apnea, morbid obesity)? @ -Asthma, smoking Was patient admitted / discharged? @ -Discharged. COVID, influenza, and RSV testing were negative. Chest x-ray reveals no acute process. DuoNeb breathing treatment administered with improvement in symptoms. Presentation is likely related to asthma exacerbation. Rx for prednisone 50mg provided with dosing instructions reviewed, which is increased compared with the 20mg prescribed at urgent care. She was also given prescriptions for DuoNeb breathing treatments and Promethazine DM cough syrup for additional symptomatic management. Otherwise advised close follow-up with her primary care provider. Patient discharged home in stable condition. Undiagnosed new problem with uncertain prognosis? @ -None Drug Therapy requiring intensive monitoring for toxicity (Heparin, Nitro, Insulin, Cardizem)? @ -None Were any procedures done? @ -None Diagnosis/symptom? @ -Asthma exacerbation Acute, or Chronic, or Acute on Chronic? @ -Acute on chronic Uncomplicated (without systemic symptoms) or Complicated (systemic symptoms)? @ -Uncomplicated Side effects of treatment? @ -None Exacerbation, Progression, or Severe Exacerbation] @ -Exacerbation Poses a threat to life or bodily function? @ -No Return precautions reviewed in depth, the patient is instructed to return to the emergency department with any new, worsening, or concerning symptoms. Patient verbalized understanding. This case was discussed in detail with the attending ED physician, Dr. Correa. Presentation, findings, and treatment plan discussed in detail as well. - Lab Data Lab Results 12/19/23 Range/Units 09:20 Influenza Type A (PCR) Not Detected (Not Detectd) Influenza Type B (PCR) Not Detected (Not Detectd) RSV (PCR) Not Detected (Not Detectd) SARS-CoV-2 (PCR) Not Detected (Not Detectd) - Radiology Data Radiology results: report reviewed, image reviewed Disposition Clinical Impression: Nicotine dependence, Asthma exacerbation Disposition: HOME SELF-CARE Instructions (If sedation given, give patient instructions): Asthma (ED), How to Use a Nebulizer (ED) Additional Instructions: Return to the emergency department with any new, worsening, or concerning s ymptoms. Take the higher dose of prednisone prescribed daily for 5 days as opposed to the dose prescribed by urgent care. You can have the cough medication every 4-6 hours as needed. Be aware that this may make you drowsy. You can use the DuoNeb breathing treatments every 4-6 hours as needed. It is up to you whether or not you want to continue the antibiotic. Follow up with your primary care provider in 1-2 days. Prescriptions: Ipratropium-Albuterol Nebulize [Duoneb 0.5 mg-3 mg/3 ml Soln] 3 ml INHALATION Q4-6H PRN #90 ml PRN Reason: Shortness Of Breath predniSONE 50 mg PO DAILY 5 Days #5 tab Promethazine/Dextromethorphan [Promethazine-Dm Syrup] 5 ml PO Q4-6H PRN #473 ml PRN Reason: Cough Is patient prescribed a controlled substance at d/c from ED?: No Referrals: Navin Mccarthy MD [Primary Care Provider] - 1-2 days Time of Disposition: 11:08
--- NOTE | 2023-12-19 09:42 | XR ---
EXAMINATION TYPE: XR chest 2V DATE OF EXAM: 12/19/2023 COMPARISON: NONE HISTORY: Chest pain TECHNIQUE: Frontal and lateral views of the chest are obtained. FINDINGS: There is no focal air space opacity. No evidence for pneumothorax. No pleural effusion. The cardiac silhouette size is within normal limits. The osseous structures are grossly intact. IMPRESSION: 1. No acute cardiopulmonary process.
[2023-12-19] MEDS: IPRATROPIUM-ALBUTEROL 3 ML NEB INHALATION STA (10:38)
[2023-12-19] MEDS: DEXAMETHASONE SOD PHOSPHATE 10 MG/ML 1 ML VIAL IM STA (11:23)
[2023-12-19 11:37] VITALS: BP 123/77; PULSE 80; RESP 16; TEMP 98.3
== END 2023-12-19 11:32 | disposition home or self-care (01) ==
LOC: EC 08:56
DX: J45.901 Unspecified asthma with (acute) exacerbation (principal); F17.290 Nicotine dependence, other tobacco product, uncomplicated; Z20.822 Contact with and (suspected) exposure to COVID-19; Z88.1 Allergy status to other antibiotic agents; Z88.2 Allergy status to sulfonamides
CPT/HCPCS: 94640; 87636; 71046; 99406; 99285; 96372; J1100